=== PATIENT | female | born 1950 | race Caucasian/White ===

== ENCOUNTER 2017-03-20 21:22 | Emergency (ER) | payer MEDICARE ==
[~2017-03-20] VITALS: Ht 167.6 cm; Wt 115.7 kg
[2017-03-20 21:32] VITALS: BP 173/95
[2017-03-20 22:19] LABS: HEMATOCRIT 39.5 % (34.6-47.8); HEMOGLOBIN 13.1 g/dL (11.7-16.4); WHITE BLOOD COUNT 9.5 x10^3/uL (3.4-10)
[2017-03-20] MEDS ORDERED: COLCHICINE 0.6 MG TABLET PO ONE (23:30)
== END 2017-03-21 00:21 | disposition home or self-care (01) ==
LOC: ED 03-21 00:10
DX: M10.061 Idiopathic gout, right knee (principal); G58.8 Other specified mononeuropathies; G89.11 Acute pain due to trauma; Z88.1 Allergy status to other antibiotic agents; Z88.6 Allergy status to analgesic agent
CPT/HCPCS: 36415; 84550; 85025; 85651; 99285

== ENCOUNTER 2017-06-05 15:38 | Emergency (ER) | payer MEDICARE ==
[~2017-06-05] VITALS: Ht 167.6 cm; Wt 112.9 kg
[2017-06-05] MEDS ORDERED: ACETAMINOPHEN 500 MG TABLET ONE (16:21)
[2017-06-05] MEDS ORDERED: ONDANSETRON 2MG/ML, 2ML ONE (16:29)
[2017-06-05] MEDS ORDERED: morphine SULFATE 10 MG/ML, 1ML ONE (16:29)
[2017-06-05] MEDS ORDERED: ONDANSETRON 2MG/ML, 2ML IVPush ONE (16:30)
[2017-06-05] MEDS ORDERED: MORPHINE SULFATE 4 MG/ML, 1ML IVPush PRN (16:30)
[2017-06-05] MEDS ORDERED: ACETAMINOPHEN 325 MG TABLET PO ONE (16:30)
[2017-06-05] MEDS ORDERED: SODIUM CHLORIDE 0.9% 1,000ML IVBOLUS ONE ×2 (16:30→19:30)
[2017-06-05] MEDS ORDERED: SODIUM CHLORIDE FLUSH 10ML SYR IVF ONE (16:30)
[2017-06-05 16:57] LABS: HEMATOCRIT 40.3 % (34.6-47.8); HEMOGLOBIN 13.6 g/dL (11.7-16.4); WHITE BLOOD COUNT 6.6 x10^3/uL (3.4-10)
[2017-06-05] MEDS ORDERED: CEFTRIAXONE PMX 1GM/50ML 50 ML IVPB ONE (17:00)
[2017-06-05 17:04] LABS: BLOOD UREA NITROGEN 10 mg/dL (7-18)
[2017-06-05] MEDS ORDERED: CEFTRIAXONE PMX 1GM/50ML 0 ML ONE (17:10)
[2017-06-05 18:01] LABS: RAPID INFLUENZA A Negative (Negative); RAPID INFLUENZA B Negative (Negative)
[2017-06-05 19:51] VITALS: BP 103/55
== END 2017-06-05 19:53 | disposition home or self-care (01) ==
LOC: ED 16:20
DX: R50.9 Fever, unspecified (principal); M54.5 Low back pain
CPT/HCPCS: 36415; 71010; 80048; 81001; 82040; 83605; 85025; 87040; 87400; 96361; 96374; 96375; 99285; J2405; J7030

== ENCOUNTER 2017-06-06 05:00 | Inpatient (IN) | payer MEDICARE ==
[~2017-06-06] VITALS: Ht 167.6 cm; Wt 115.1 kg
[2017-06-06] MEDS ORDERED: ACETAMINOPHEN 500 MG TABLET ONE (05:45)
[2017-06-06] MEDS ORDERED: ONDANSETRON 2MG/ML, 2ML IVPush ONE (06:00)
[2017-06-06] MEDS ORDERED: SODIUM CHLORIDE FLUSH 10ML SYR IVF ONE (06:00)
[2017-06-06] MEDS ORDERED: HYDROmorphone 1 MG/ML, 1ML IVPush PRN (06:00)
[2017-06-06] MEDS ORDERED: CEFTRIAXONE PMX 1GM/50ML 50 ML IVPB ONE (06:00)
[2017-06-06] MEDS ORDERED: LORazepam 2 MG/ML, 1ML IVPush PRN (06:00)
[2017-06-06] MEDS ORDERED: ACETAMINOPHEN 500 MG TABLET PO ONE (06:00)
[2017-06-06] MEDS ORDERED: SODIUM CHLORIDE 0.9% 1,000ML IVBOLUS ONE (06:00)
[2017-06-06 06:20] LABS: HEMATOCRIT 35.5 % (34.6-47.8); HEMOGLOBIN 12.1 g/dL (11.7-16.4); WHITE BLOOD COUNT 4.7 x10^3/uL (3.4-10)
[2017-06-06 06:23] LABS: ASPARTATE AMINO TRANSFERASE 19 U/L (15-37); BLOOD UREA NITROGEN 14 mg/dL (7-18)
[2017-06-06] MEDS ORDERED: HYDROmorphone 1 MG/ML, 1ML ONE ×2 (06:25→10:08)
[2017-06-06] MEDS ORDERED: ONDANSETRON 2MG/ML, 2ML ONE ×2 (06:26→09:27)
[2017-06-06] MEDS ORDERED: CEFTRIAXONE PMX 1GM/50ML 50 ML ONE (06:26)
[2017-06-06] MEDS ORDERED: ONDANSETRON 2MG/ML, 2ML IVPush PRN (10:00)
[2017-06-06] MEDS ORDERED: ONDANSETRON ODT 4 MG PO PRN (10:00)
[2017-06-06] MEDS ORDERED: ACETAMINOPHEN 325 MG TABLET PO PRN (10:00)
[2017-06-06] MEDS ORDERED: PROMETHAZINE 25 MG/ML, 1ML IM PRN (10:00)
[2017-06-06] MEDS ORDERED: LABETALOL 5MG/ML, 20ML IVPush PRN (10:00)
[2017-06-06 10:16] VITALS: BP 147/84
[2017-06-06] MEDS: SODIUM CHLORIDE 0.9% 1,000 ML IV SCH ×2 (10:23→17:49)
[2017-06-06] MEDS: ENOXAPARIN 40 MG/0.4 ML SQ SCH (10:25)
[2017-06-06 11:13] LABS: HIV 1&2 ANTIBODY SCREEN Nonreactive (Nonreactive); HIV-1 p24 ANTIGEN Nonreactive (Nonreactive)
[2017-06-06 12:35] VITALS: BP 118/80
[2017-06-06 14:26] LABS: RAPID INFLUENZA A POSITIVE (Negative); RAPID INFLUENZA B Negative (Negative)
[2017-06-06] MEDS ORDERED: SUMATRIPTAN 100 MG TABLET PO PRN (15:30)
[2017-06-06] MEDS: OSELTAMIVIR 75 MG CAPSULE PO SCH (20:14)
[2017-06-06 21:06] VITALS: BP 155/92
[2017-06-07] MEDS: SODIUM CHLORIDE 0.9% 1,000 ML IV SCH ×3 (01:17→18:41)
[2017-06-07 01:30] VITALS: BP 160/92
[2017-06-07 05:25] LABS: HEMOGLOBIN 10.5 g/dL (11.7-16.4)
[2017-06-07 05:55] LABS: ASPARTATE AMINO TRANSFERASE 18 U/L (15-37); BLOOD UREA NITROGEN 13 mg/dL (7-18)
[2017-06-07] MEDS: LEVOTHYROXINE 200 MCG TABLET PO SCH (06:18)
[2017-06-07 06:22] LABS: DIFF TOTAL CELLS COUNTED 100 CELL DIFF
[2017-06-07 06:26] LABS: VERIFY COUNTS? YES
[2017-06-07 06:27] LABS: ANISOCYTOSIS 1+
[2017-06-07 07:59] VITALS: BP 116/64
[2017-06-07] MEDS: ENOXAPARIN 40 MG/0.4 ML SQ SCH (09:36)
[2017-06-07] MEDS: OSELTAMIVIR 75 MG CAPSULE PO SCH ×2 (09:36→21:01)
[2017-06-07 14:01] VITALS: BP 121/72
[2017-06-07 20:53] VITALS: BP 154/85
[2017-06-08 01:57] VITALS: BP 153/83
[2017-06-08] MEDS: SODIUM CHLORIDE 0.9% 1,000 ML IV SCH (02:40)
[2017-06-08 05:12] LABS: HEMATOCRIT 31.4 % (34.6-47.8); HEMOGLOBIN 10.7 g/dL (11.7-16.4); WHITE BLOOD COUNT 2.5 x10^3/uL (3.4-10)
[2017-06-08 05:24] LABS: BLOOD UREA NITROGEN 13 mg/dL (7-18)
[2017-06-08] MEDS: LEVOTHYROXINE 200 MCG TABLET PO SCH (05:42)
[2017-06-08 07:45] VITALS: BP 166/98
[2017-06-08] MEDS: ENOXAPARIN 40 MG/0.4 ML SQ SCH (08:41)
[2017-06-08] MEDS: OSELTAMIVIR 75 MG CAPSULE PO SCH (08:41)
[2017-06-08] MEDS ORDERED: OSEL75CA PO (09:15)
[2017-06-08 18:06] LABS: CYCLIC CITRULLINATED PEP IGG/A 14 units (0-19); RA LATEX TURBIDITY <10.0 IU/mL (0.0-13.9)
== END 2017-06-08 10:25 | disposition home or self-care (01) | DRG 193 ==
LOC: ED 05:44 → EDIP 08:30 → 4WST 10:07
PROVIDERS: ADMIT Hospitalist; ATTEND Hospitalist
DX: J09.X2 Influenza due to identified novel influenza A virus with other respiratory manifestations (principal); N17.0 Acute kidney failure with tubular necrosis; I11.9 Hypertensive heart disease without heart failure; E03.9 Hypothyroidism, unspecified; M10.9 Gout, unspecified; Z96.653 Presence of artificial knee joint, bilateral; M54.5 Low back pain; G89.29 Other chronic pain; G43.909 Migraine, unspecified, not intractable, without status migrainosus; Z87.440 Personal history of urinary (tract) infections; Z88.1 Allergy status to other antibiotic agents; Z82.49 Family history of ischemic heart disease and other diseases of the circulatory system; Z88.8 Allergy status to other drugs, medicaments and biological substances; Z23 Encounter for immunization
CPT/HCPCS: 36415; 71010; 80048; 80053; 80061; 83605; 83690; 83735; 84100; 84145; 84443; 85025; 85651; 86140; 86200; 86431; 86480; 86703; 86704; 86706; 86708; 86803; 87040; 87340; 87400; 87899; 96361; 96374; 96375; J0696; J1170; J1650; J2405; G0435; J7030